=== PATIENT | female | born 1980 | race African-American/Black ===

== ENCOUNTER 2017-03-02 18:57 | Emergency (ER) | payer SELFPAY ==
[~2017-03-02] VITALS: Ht 165.1 cm; Wt 60.0 kg
[2017-03-02 19:01] VITALS: BP 115/71
== END 2017-03-02 22:15 | disposition left against medical advice (07) ==
LOC: ER 20:28
DX: R10.9 Unspecified abdominal pain (principal); Z53.21 Procedure and treatment not carried out due to patient leaving prior to being seen by health care provider